=== PATIENT | male | born 1985 | race Caucasian/White ===

== ENCOUNTER 2019-03-11 00:29 | Emergency (ER) | payer SELFPAY ==
[2019-03-11] MEDS: CYCLOBENZAPRINE 10 MG TAB PO (02:17)
[2019-03-11] MEDS: KETOROLAC 30 MG INJ IM (02:18)
== END 2019-03-11 02:23 | disposition home or self-care (01) ==
LOC: FTE 00:29
DX: M54.2 Cervicalgia (principal); M62.838 Other muscle spasm
CPT/HCPCS: 96372; 99284-25